=== PATIENT | male | born 1975 | race Caucasian/White ===

== ENCOUNTER → 2021-10-14 | Outpatient (CLI) | payer MEDICAID ==
--- NOTE | 2021-10-14 08:41 | CT ---
EXAMINATION TYPE: CT chest wo con DATE OF EXAM: 10/14/2021 INDICATION: SOB CT DLP: 274 mGy.cm Automated Exposure Control for Dose Reduction was Utilized. TECHNIQUE AND CONTRAST: Axial CT scan of the chest in the prone and supine positions as per high-resolution CT protocol witho ut IV contrast administration. COMPARISON: No previous CT scan is available for comparison. FINDINGS: Irregular area of consolidation with linear infiltration and subtle nodularity seen in the lingula de monstrating air bronchogram within, with questionable scarring at that location. Minimal scarring/fib rotic changes is seen in the middle lobe. Subtle groundglass nodularity seen in the left upper lobe. Grossly unremarkable lungs otherwise. Claire nt central airways. No pleural or pericardial effusion. No gross cardiomegaly. The pulmonary trunk measures 3.2 cm. No pathologically enlarged lymph nodes in the chest by this CT scan. No gross aggressive bone lesion. IMPRESSION: The described changes in the left lingula and to a lesser extent in the middle lobe and the left uppe r lobe could represent sequela of previous pulmonary infection. Ongoing chronic atypical infection li ke mycobacterial infection cannot be excluded, for clinical correlation and further workup. No convin cing evidence of interstitial lung disease otherwise.
== END | disposition home or self-care (01) ==
LOC: RADCTMAIN 06:35
PROVIDERS: ATTEND Internal Medicine Critical Care Medicine
DX: J84.9 Interstitial pulmonary disease, unspecified (principal)
CPT/HCPCS: 71250